=== PATIENT | female | born 1945 | race American Indian/Alaskan Native ===

== ENCOUNTER 2016-08-15 11:12 | Outpatient (CLI) | payer MEDICARE ==
[2016-08-15 12:05] LABS: Hematocrit 34.2 % (30.3-42.9); Hemoglobin 11.3 gm/dl (10.1-14.3); Mean Corpuscular HGB Conc 33 % (30-34); Mean Corpuscular Hemoglobin 31 pg (28-32); Mean Corpuscular Volume 93 fl (79-97); Platelet Count 240 K/mm3 (140-440); Red Blood Count 3.69 M/mm3 (3.65-5.03); Red Cell Distribution Width 14.9 % (13.2-15.2); White Blood Count 6.1 K/mm3 (4.5-11.0)
--- NOTE | 2016-08-15 12:15 | Mammography Report ---
Right mammogram: Compared to 07/23/14. CAD study utilized. History: History of breast cancer. Findings: Several clusters of calcification noted at the right breast with increase in calcification compared with previous study anteriorly the amorphous. New cluster of calcification is also noted. No mass is identified. Benign axilla. Impression: New and increase in clusters of calcification. Spot compression and magnification recommended. BI-RADS CATEGORY: 0 = Needs additional imaging evaluation ACR BI-RADS MAMMOGRAPHIC CODES: 0 = Needs additional imaging evaluation; 1 = Negative; 2 = Benign; 3 = Probably benign; 4 = Suspicious; 5 = Malignant; 6 = Known biopsy-proven malignancy COMMENT: 1. Dense breast tissue, i.e., adenosis, fibrocystic changes, etc., may obscure an underlying neoplasm. 2. Approximately 10% of cancers are not detected with mammography. 3. A negative mammography report should not delay biopsy if a clinically suspicious mass is present.
[2016-08-15 12:25] LABS: Alanine Aminotransferase 16 units/L (7-56); Albumin 3.7 g/dL (3.9-5); Albumin/Globulin Ratio 1.2 %; Alkaline Phosphatase 90 units/L (35-129); Anion Gap 15 mmol/L; BUN/Creatinine Ratio 17.14; Blood Urea Nitrogen 12 mg/dL (7-17); Calcium 9.3 mg/dL (8.4-10.2); Carbon Dioxide 28 mmol/L (22-30); Chloride 105.1 mmol/L (98-107); Glucose 67 mg/dL (65-100); Potassium 3.9 mmol/L (3.6-5.0); Sodium 144 mmol/L (137-145); Total Protein 6.8 g/dL (6.3-8.2)
== END 2016-08-15 11:13 | disposition home or self-care (01) ==
LOC: MAMMO 11:12
PROVIDERS: ATTEND Internal Medicine
DX: Z12.31 Encounter for screening mammogram for malignant neoplasm of breast (principal); E11.65 Type 2 diabetes mellitus with hyperglycemia; R53.83 Other fatigue; Z85.3 Personal history of malignant neoplasm of breast
CPT/HCPCS: 36415; 80053; 83036; 85027; G0202

== ENCOUNTER 2017-08-09 17:28 | Emergency (ER) | payer MEDICARE ==
[2017-08-09] MEDS ORDERED: CATAPRES ONE (17:50)
[2017-08-09] MEDS ORDERED: CATAPRES PO ONE (17:53)
[2017-08-09 18:06] LABS: Basophils % (Auto) 0.8 % (0.0-1.8); Eosinophils # (Auto) 0.1 K/mm3 (0.0-0.4); Eosinophils % (Auto) 1.4 % (0.0-4.3); Hematocrit 35.8 % (30.3-42.9); Hemoglobin 12.4 gm/dl (10.1-14.3); Lymphocytes % (Auto) 32.3 % (13.4-35.0); Mean Corpuscular HGB Conc 35 % (30-34); Mean Corpuscular Hemoglobin 32 pg (28-32); Mean Corpuscular Volume 93 fl (79-97); Monocytes # (Auto) 0.5 K/mm3 (0.0-0.8); Monocytes % (Auto) 8.1 % (0.0-7.3); Platelet Count 207 K/mm3 (140-440); Red Blood Count 3.86 M/mm3 (3.65-5.03); Red Cell Distribution Width 14.4 % (13.2-15.2)
[2017-08-09 18:22] LABS: BUN/Creatinine Ratio 16; Blood Urea Nitrogen 13 mg/dL (7-17); Calcium 9.2 mg/dL (8.4-10.2); Hemolysis Index 15
[2017-08-09 18:26] LABS: Albumin 3.7 g/dL (3.9-5)
[2017-08-09 18:39] LABS: INR 0.8 (0.87-1.13)
[2017-08-09 18:40] LABS: Partial Thromboplastin Time 31.5 Sec. (24.2-36.6)
[2017-08-09 18:41] LABS: Bilirubin,Direct < 0.2 mg/dL (0-0.2)
[2017-08-09 18:46] LABS: Alanine Aminotransferase 10 units/L (7-56)
[2017-08-09 18:53] VITALS: BP 155/83
--- NOTE | 2017-08-09 20:05 | Cat Scan Report ---
FINAL REPORT EXAM: CT HEAD/BRAIN WO CON HISTORY: HEADACHE DIZZINESS HIGH B/P TECHNIQUE: Standard unenhanced CT of the head at 5.0 millimeter axial increments. PRIORS: None. FINDINGS: The ventricular system is normal in size and configuration. There is no evidence for parenchymal volume loss. There is no evidence for mass lesion, mass effect, midline shift, acute intracranial hemorrhage, or acute ischemia/ infarction. No evidence for acute skull fracture is seen. No abnormality in the overlying scalp soft tissues is seen. Visualized paranasal sinuses are clear. IMPRESSION: Negative CT of the head. No acute intracranial process noted.
--- NOTE | 2017-08-09 21:24 | Emergency Department Report ---
ED General Adult HPI - General Chief complaint: High BP Stated complaint: HYPERTENSION Time Seen by Provider: 08/09/17 21:13 Source: patient Mode of arrival: Ambulatory Limitations: No Limitations - History of Present Illness Initial comments: Patient is a 72-year-old black female past medical history hypertension who is coming in because of a slight headache and dizziness. The patient took her blood pressure at home and it was elevated. Patient 7 over symptoms this time. Patient denies any shortness of breath decreased urination or chest pain. Patient states that she has had several salty meals including some pork that was in some food as well as that she did use a full package O seasoning. Patient also has missed 2 doses of her blood pressure medicines as well. - Related Data Previous Rx's Medication Instructions Recorded Last Taken Type Acetaminophen/Codeine [Tylenol #3] 1 tab PO Q6H PRN #20 tab 04/01/15 Unknown Rx Cyclobenzaprine [Flexeril] 10 mg PO TID PRN #20 tablet 04/01/15 Unknown Rx Allergies Allergy/AdvReac Type Severity Reaction Status Date / Time No Known Allergies Allergy Verified 08/09/17 18:15 ED Review of Systems ROS: Stated complaint: HYPERTENSION Other details as noted in HPI Comment: All other systems reviewed and negative ED Past Medical Hx - Past Medical History Hx Hypertension: Yes Hx Diabetes: Yes - Surgical History Past Surgical History?: No - Social History Smoking Status: Never Smoker Substance Use Type: None - Medications Home Medications: Home Medications Medication Instructions Recorded Confirmed Last Taken Type Acetaminophen/Codeine [Tylenol #3] 1 tab PO Q6H PRN #20 tab 04/01/15 Unknown Rx Cyclobenzaprine [Flexeril] 10 mg PO TID PRN #20 tablet 04/01/15 Unknown Rx ED Physical Exam - General Limitations: No Limitations General appearance: alert, in no apparent distress - Head Head exam: Present: atraumatic, normocephalic - Eye Eye exam: Present: normal appearance - ENT ENT exam: Present: mucous membranes moist - Neck Neck exam: Present: normal inspection - Respiratory Respiratory exam: Present: normal lung sounds bilaterally. Absent: respiratory distress, wheezes, rales, rhonchi - Cardiovascular Cardiovascular Exam: Present: regular rate, normal rhythm. Absent: systolic murmur, diastolic murmur, rubs, gallop - GI/Abdominal GI/Abdominal exam: Present: soft, normal bowel sounds. Absent: distended, tenderness, guarding, rebound - Extremities Exam Extremities exam: Present: normal inspection - Back Exam Back exam: Present: normal inspection - Neurological Exam Neurological exam: Present: alert, oriented X3 - Psychiatric Psychiatric exam: Present: normal affect, normal mood - Skin Skin exam: Present: warm, dry, intact, normal color. Absent: rash ED Course Vital Signs 08/09/17 08/09/17 08/09/17 17:31 17:55 18:51 Temperature 98.4 F Pulse Rate 101 H 97 H 92 H Respiratory 18 Rate Blood Pressure 240/103 240/109 Blood Pressure 155/83 [Left] O2 Sat by Pulse 98 Oximetry ED Medical Decision Making - Lab Data Result diagrams: 08/09/17 17:48 08/09/17 17:48 - EKG Data -: EKG Interpreted by Nv - EKG Data Interpretation: other (patient's EKG shows sinus rhythm at 98 normal axis normal intervals no ST segment elevation or did or depressions.Interpretation 1745.) - Medical Decision Making Was given an appointment to her [place] and blood pressure decreased to 150 range. Patient still is having no symptoms feels much improved status headache is gone. Opted to not change her blood pressure regimen at this time she does have very reliable physician. Patient will follow Dr. Meneses in his clinic. Patient IS encouraged to have a low sodium diet. Critical care attestation.: If time is entered above; I have spent that time in minutes in the direct care of this critically ill patient, excluding procedure time. ED Disposition Clinical Impression: Hypertensive urgency Disposition: DC-01 TO HOME OR SELFCARE Is pt being admited?: No Does the pt Need Aspirin: No Condition: Stable Instructions: Hypertension (ED), DASH Eating Plan (ED) Additional Instructions: Please have Dr. Meneses review your blood pressure next several days. Any changes to your blood pressure medication should be done by Dr. Meneses. Also please refrain from eating anything with large amounts of sodium Referrals: DAYNE MENESES MD [Staff Physician] - 3-5 Days
== END 2017-08-09 21:58 | disposition home or self-care (01) ==
LOC: ED 17:28
DX: I16.0 Hypertensive urgency (principal); E11.9 Type 2 diabetes mellitus without complications
CPT/HCPCS: 36415; 70450; 80048; 80074; 83880; 84484; 85025; 85610; 85730; 93005; 93010

== ENCOUNTER 2018-01-09 10:16 | Outpatient (CLI) | payer MEDICARE ==
--- NOTE | 2018-01-10 09:09 | Mammography Report ---
Right mammogram: Compared to 08/15/16 and 07/23/14. CAD study utilized. Findings: Heterogeneous breast parenchyma. Left mastectomy changes. Group/cluster of calcifications right breast without significant interval change. Benign density without significant interval change. Impression: Status post left mastectomy. Benign calcifications and density right breast without significant interval change. Annual followup recommended. BI-RADS CATEGORY: 2 = Benign ACR BI-RADS MAMMOGRAPHIC CODES: 0 = Needs additional imaging evaluation; 1 = Negative; 2 = Benign; 3 = Probably benign; 4 = Suspicious; 5 = Malignant; 6 = Known biopsy-proven malignancy COMMENT: 1. Dense breast tissue, i.e., adenosis, fibrocystic changes, etc., may obscure an underlying neoplasm. 2. Approximately 10% of cancers are not detected with mammography. 3. A negative mammography report should not delay biopsy if a clinically suspicious mass is present. COMMENT: Patient follow-up letters are generated in [employer].
== END 2018-01-09 10:17 | disposition home or self-care (01) ==
LOC: MAMMO 10:16
PROVIDERS: ATTEND Internal Medicine
DX: Z12.31 Encounter for screening mammogram for malignant neoplasm of breast (principal); I10 Essential (primary) hypertension
CPT/HCPCS: 77067

== ENCOUNTER 2019-01-14 10:29 | Outpatient (CLI) | payer MEDICARE ==
--- NOTE | 2019-01-15 12:04 | Mammography Report ---
DIGITAL SCREENING MAMMOGRAM WITH CAD, 01/14/2019 INDICATION: Routine screening mammography. Breast cancer survivor status post left mastectomy. TECHNIQUE: Digital bilateral 2D mammography was obtained in the craniocaudal and mediolateral obliq ue projections. The left side was imaged since there is considerable soft tissue of the left chest wa ll. This examination was interpreted with the benefit of Computer-Aided Detection analysis. COMPARISON: 01/09/2018 FINDINGS: Breast Density: The right breast is heterogeneously dense, which may obscure small masses. There is no evidence of dominant mass, suspicious calcifications or architectural distortion in the r ight breast. Scattered calcifications with benign morphology are unchanged compared to previous exams . The left chest wall is negative. IMPRESSION: No mammographic evidence of malignancy. Follow up recommendation: Routine yearly BI-RADS Category 2: Benign. A "normal" or negative report should not discourage follow up or biopsy of a clinically significant f inding. A written summary of these findings will be mailed to the patient. The patient will be entered into a mammography reporting system which will generate a reminder letter for the patient's next appointmen t at the appropriate interval. The [employer] recommends yearly mammograms starting at age 40 and continuing as l brianne as a woman is in good health. Breast MRI is recommended for women with an approximate 20-25% or greater lifetime risk of breast cancer, including women with a strong family history of breast or ova cristal cancer or who have been treated for Hodgkin's disease. Signer Name: Dwayne Wang MD Signed: 01/15/2019 12:00 PM Workstation Name: [id number]
== END 2019-01-14 10:30 | disposition home or self-care (01) ==
LOC: MAMMO 10:29
PROVIDERS: ATTEND Internal Medicine
DX: Z12.31 Encounter for screening mammogram for malignant neoplasm of breast (principal); I10 Essential (primary) hypertension
CPT/HCPCS: 77067

== ENCOUNTER 2020-03-02 10:25 | Outpatient (CLI) | payer MEDICARE ==
--- NOTE | 2020-03-02 16:47 | Mammography Report ---
DIGITAL SCREENING MAMMOGRAM WITH CAD, 03/02/2020 INDICATION: Routine screening mammography. TECHNIQUE: Digital bilateral 2D mammography was obtained in the craniocaudal and mediolateral obliq ue projections. This examination was interpreted with the benefit of Computer-Aided Detection analysi s. COMPARISON: 01/14/2019. FINDINGS: Breast Density: There are scattered areas of fibroglandular density. There is no evidence of dominant mass, suspicious calcifications or architectural distortion in eithe r breast. Previous left mastectomy. Benign-appearing right-sided calcification and nodularity is unch anged. IMPRESSION: Follow up recommendation: Routine yearly BI-RADS Category 2: Benign. A "normal" or negative report should not discourage follow up or biopsy of a clinically significant f inding. A written summary of these findings will be mailed to the patient. The patient will be entered into a mammography reporting system which will generate a reminder letter for the patient's next appointmen t at the appropriate interval. The [employer] recommends yearly mammograms starting at age 40 and continuing as l brianne as a woman is in good health. Breast MRI is recommended for women with an approximate 20-25% or greater lifetime risk of breast cancer, including women with a strong family history of breast or ova cristal cancer or who have been treated for Hodgkin's disease. Signer Name: Je Goldman MD Signed: 03/02/2020 4:43 PM Workstation Name: [id number]
== END 2020-03-02 10:26 | disposition home or self-care (01) ==
LOC: MAMMO 10:25
PROVIDERS: ATTEND Internal Medicine
DX: Z12.31 Encounter for screening mammogram for malignant neoplasm of breast (principal); N64.89 Other specified disorders of breast; Z90.12 Acquired absence of left breast and nipple
CPT/HCPCS: 77067

== ENCOUNTER 2021-03-03 10:22 | Outpatient (CLI) | payer MEDICARE ==
--- NOTE | 2021-03-04 13:05 | Mammography Report ---
DIGITAL SCREENING MAMMOGRAM WITH CAD, 03/03/2021 CLINICAL INFORMATION / INDICATION: Routine screening mammography. The patient has a personal history of left breast cancer treated with mastectomy. TECHNIQUE: Digital bilateral 2D mammography was obtained in the craniocaudal and mediolateral obliqu e projections. This examination was interpreted with the benefit of Computer-Aided Detection analysis . COMPARISON: 03/02/2020, 01/14/2019, 12/10/2017 FINDINGS: Breast Density: The breasts are heterogeneously dense, which may obscure small masses. No dominant mass, suspicious calcifications, or architectural distortion in the right breast. Numerou s grouped coarse calcifications throughout the right breast are again noted and have not significantl y changed. Postsurgical changes from left mastectomy are again noted. IMPRESSION: No mammographic evidence of malignancy. Follow up recommendation: Routine yearly BI-RADS Category 2: Benign. A "normal" or negative report should not discourage follow up or biopsy of a clinically significant f inding. A written summary of these findings will be mailed to the patient. The patient will be entered into a mammography reporting system which will generate a reminder letter for the patient's next appointmen t at the appropriate interval. The [employer] recommends yearly mammograms starting at age 40 and continuing as l brianne as a woman is in good health. Breast MRI is recommended for women with an approximate 20-25% or greater lifetime risk of breast cancer, including women with a strong family history of breast or ova cristal cancer or who have been treated for Hodgkin's disease. Signer Name: Darlene Sotelo MD Signed: 03/04/2021 1:01 PM Workstation Name: [id number]
== END 2021-03-03 10:23 | disposition home or self-care (01) ==
LOC: MAMMO 10:22
PROVIDERS: ATTEND Internal Medicine
DX: Z12.31 Encounter for screening mammogram for malignant neoplasm of breast (principal)
CPT/HCPCS: 77067

== ENCOUNTER 2021-10-02 10:56 | Emergency (ER) | payer MEDICARE ==
[2021-10-02] MEDS ORDERED: ASPIRIN 325 MG TAB PO ONE (11:28)
[2021-10-02] MEDS ORDERED: SODIUM CHLORIDE 0.9% 1000 ML 1,000 ML IV ONE (11:59)
--- NOTE | 2021-10-02 12:09 | Emergency Department Report ---
ED General Adult HPI - General Chief complaint: Shoulder Injury Stated complaint: SHOULDER PAIN PUI?: No Time Seen by Provider: 10/02/21 11:37 Source: patient Mode of arrival: Ambulatory Limitations: No Limitations - History of Present Illness Initial comments: This is a pleasant 76-year-old female with medical history of hypertension also diabetes who came in today with concerns of elevated blood pressure which according patient she was seen by her primary care provider this past . Prior to the patient's blood pressure medication was not changed has been consistent. However after this she stated her blood pressure medication has been changed by her primary care provider. In that region patient came to the ER 2 days because of left shoulder discomfort which according the patient she had injured her left shoulder back in August when she was moving stuff today her left shoulder has been hurting her. Patient denies any chest discomfort. States left shoulder discomfort is worse with movement. Patient current denies any fever chill night sweat dizziness blurred vision lightheadedness headache tinnitus ear pain runny nose sore throat loss of taste loss of smell chest pain palpitation short breath cough abdominal pain nausea vomiting diarrhea constipation dysuria new rash heat or cold intolerance. Severity scale (0 -10): 9 - Related Data Previous Rx's Medication Instructions Recorded Last Taken Type Acetaminophen/Codeine [Tylenol #3] 1 tab PO Q6H PRN #20 tab 04/01/15 Unknown Rx Cyclobenzaprine [Flexeril] 10 mg PO TID PRN #20 tablet 04/01/15 Unknown Rx Diclofenac Sodium [Voltaren 20 gm TP DAILY #1 10/02/21 Unknown Rx Arthritis Pain] Allergies Allergy/AdvReac Type Severity Reaction Status Date / Time No Known Allergies Allergy Verified 08/09/17 18:15 ED Review of Systems ROS: Stated complaint: SHOULDER PAIN Other details as noted in HPI Comment: All other systems reviewed and negative Constitutional: no symptoms reported Eyes: as per HPI ENT: as per HPI Respiratory: no symptoms reported Cardiovascular: as per HPI. denies: chest pain, palpitations, dyspnea on exertion, orthopnea, edema, syncope, paroxysmal nocturnal dyspnea Endocrine: no symptoms reported Gastrointestinal: as per HPI Musculoskeletal: arthralgia (left shoulder discomfort) Neurological: as per HPI Psychiatric: as per HPI Hematological/Lymphatic: as per HPI ED Past Medical Hx - Past Medical History Previous Medical History?: Yes Hx Hypertension: Yes Hx Diabetes: Yes - Surgical History Past Surgical History?: No - Social History Smoking Status: Never Smoker Substance Use Type: None - Medications Home Medications: Home Medications Medication Instructions Recorded Confirmed Last Taken Type Acetaminophen/Codeine [Tylenol #3] 1 tab PO Q6H PRN #20 tab 04/01/15 Unknown Rx Cyclobenzaprine [Flexeril] 10 mg PO TID PRN #20 tablet 04/01/15 Unknown Rx Diclofenac Sodium [Voltaren 20 gm TP DAILY #1 10/02/21 Unknown Rx Arthritis Pain] ED Physical Exam - General Limitations: No Limitations General appearance: alert, in no apparent distress - Head Head exam: Present: atraumatic, normocephalic, normal inspection - Eye Eye exam: Present: normal appearance, PERRL Pupils: Present: normal accommodation - ENT ENT exam: Present: normal exam, normal orophraynx - Neck Neck exam: Present: normal inspection - Respiratory Respiratory exam: Present: normal lung sounds bilaterally - Cardiovascular Cardiovascular Exam: Present: regular rate, normal rhythm, normal heart sounds - GI/Abdominal GI/Abdominal exam: Present: soft - Rectal Rectal exam: Present: normal inspection - Extremities Exam Extremities exam: Present: normal inspection, full ROM, normal capillary refill - Back Exam Back exam: Present: normal inspection, full ROM - Neurological Exam Neurological exam: Present: alert, altered, oriented X3, CN II-XII intact - Psychiatric Psychiatric exam: Present: normal affect, normal mood - Skin Skin exam: Present: normal color ED Course Vital Signs 10/02/21 10/02/21 10/02/21 11:21 12:40 12:46 Temperature 98.3 F Pulse Rate 83 84 Respiratory 16 17 Rate Blood Pressure 223/86 220/83 Blood Pressure 223/86 [Right] O2 Sat by Pulse 97 98 97 Oximetry 10/02/21 10/02/21 10/02/21 12:59 13:02 13:16 Temperature Pulse Rate 78 Respiratory Rate Blood Pressure 220/83 187/79 187/79 Blood Pressure [Right] O2 Sat by Pulse 77 L 98 Oximetry 10/02/21 10/02/21 10/02/21 13:30 13:46 14:00 Temperature Pulse Rate Respiratory Rate Blood Pressure 196/66 186/77 177/94 Blood Pressure [Right] O2 Sat by Pulse 99 98 98 Oximetry 0710/02/21 10/02/21 14:16 14:30 14:45 Temperature Pulse Rate Respiratory Rate Blood Pressure 175/78 152/78 133/74 Blood Pressure [Right] O2 Sat by Pulse 93 93 Oximetry 10/02/21 15:00 Temperature Pulse Rate Respiratory Rate Blood Pressure 133/74 Blood Pressure [Right] O2 Sat by Pulse 93 Oximetry ED Medical Decision Making - Lab Data Result diagrams: 10/02/21 13:32 10/02/21 13:32 Critical care attestation.: If time is entered above; I have spent that time in minutes in the direct care of this critically ill patient, excluding procedure time. ED Disposition Clinical Impression: Left shoulder pain, Asymptomatic hypertensive urgency Disposition: 01 HOME / SELF CARE / HOMELESS Is pt being admited?: No Does the pt Need Aspirin: No Condition: Stable Instructions: Hypertension, Adult, [id number] Additional Instructions: MAKE A FOLLOW UP APPOINTMENT WITH YOUR PRIMARY CARE PROVIDER WITHIN 3-5 DAYS FOR FURTHER OUTPATIENT EVALUATION AND MANAGEMENT OF YOUR BLOOD PRESSURE. IN THE MEANTIME, USE VOLTAREN JELL FOR YOUR LEFT SHOULDER PAIN. Prescriptions: Diclofenac Sodium [Voltaren Arthritis Pain] 20 gm TP DAILY #1 Time of Disposition: 16:34
--- NOTE | 2021-10-02 12:28 | XRay Report ---
LEFT SHOULDER 3 VIEW(S) INDICATION / CLINICAL INFORMATION: SHOULDER DISCOMFORT. COMPARISON: None available. FINDINGS: BONES / JOINT(S): No acute fracture or subluxation. There is degenerative change involving the glenoh umeral joint and AC joint. There is some calcification noted along the supraspinatus tendon possibly representing calcific tendinosis. SOFT TISSUES: No significant abnormality. ADDITIONAL FINDINGS: None. Signer Name: Darek Galloway MD Signed: 10/02/2021 12:23 PM Workstation Name: [id number]
[2021-10-02] MEDS ORDERED: cloNIDine 0.2 MG TAB PO ONE (12:29)
--- NOTE | 2021-10-02 12:29 | XRay Report ---
CHEST 2 VIEWS INDICATION / CLINICAL INFORMATION: left shoulder/chest pain. COMPARISON: None available. FINDINGS: SUPPORT DEVICES: None. HEART / MEDIASTINUM: No significant abnormality. LUNGS / PLEURA: No significant pulmonary or pleural abnormality. No pneumothorax. ADDITIONAL FINDINGS: Surgical clips are noted in the left axilla. IMPRESSION: 1. No acute findings. Signer Name: Darek Galloway MD Signed: 10/02/2021 12:24 PM Workstation Name: [id number]
[2021-10-02 13:55] LABS: Basophils % (Auto) 0.5 % (0.0-1.8); Eosinophils # (Auto) 0.1 K/mm3 (0.0-0.4); Eosinophils % (Auto) 1.1 % (0.0-4.3); Hematocrit 34.5 % (30.3-42.9); Hemoglobin 11.4 gm/dl (10.1-14.3); Lymphocytes # (Auto) 1.5 K/mm3 (1.2-5.4); Lymphocytes % (Auto) 27.2 % (13.4-35.0); Mean Corpuscular HGB Conc 33 % (30-34); Mean Corpuscular Volume 95 fl (79-97); Monocytes # (Auto) 0.3 K/mm3 (0.0-0.8); Monocytes % (Auto) 6.1 % (0.0-7.3); Platelet Count 225 K/mm3 (140-440); Red Blood Count 3.66 M/mm3 (3.65-5.03)
[2021-10-02 14:38] LABS: Alanine Aminotransferase 15 units/L (7-56); Albumin 3.9 g/dL (3.9-5); BUN/Creatinine Ratio 19; Blood Urea Nitrogen 13 mg/dL (7-17); Calcium 9.7 mg/dL (8.4-10.2); Hemolysis Index 3
--- NOTE | 2021-10-02 15:23 | Electrocardiograph Report ---
[facility] Test Date: 2021-10-02 Test Time: 11:30:41 Pat Name: STEVEN CHAMORRO Department: Room: Gender: F Tax[employer]: SEBASTIAN : 1945 Requested By: ED DOC Order Number: [id number] Reading MD: Joe Davis Measurements Intervals [place] Rate: 86 P: -22 HI: 198 QRS: 34 QRSD: 91 T: -17 QT: 384 QTc: 459 Interpretive Statements Sinus rhythm No previous ECG available for comparison Electronically Signed On 10-02-2021 15:23:14 EDT by Joe Davis
[2021-10-02] MEDS ORDERED: cloNIDine 0.1 MG TAB PO ONE (16:13)
[2021-10-02] MEDS ORDERED: KETOROLAC 30 MG/1 ML INJ IM ONE (16:19)
[2021-10-02 17:03] VITALS: BP 148/72
== END 2021-10-02 17:19 | disposition home or self-care (01) ==
LOC: ED 10:56
DX: M25.512 Pain in left shoulder (principal); I16.0 Hypertensive urgency; I10 Essential (primary) hypertension; E11.9 Type 2 diabetes mellitus without complications
CPT/HCPCS: 36415; 71046; 73030; 80053; 84484; 85025; 93005; 96372; 99284; J1885; 99283